=== PATIENT | female | born 1985 | race African-American/Black ===

== ENCOUNTER 2019-04-03 18:53 | Emergency (ER) | payer MEDICAID, OTHER ==
[~2019-04-03] VITALS: Ht 167.6 cm; Wt 75.0 kg
[2019-04-03] MEDS ORDERED: IPRATROPIUM BROMIDE (0.02%) 0.5MG/2.5ML NEB HHN STA (19:59)
[2019-04-03] MEDS ORDERED: PREDNISONE 20MG TABLET PO STA (19:59)
[2019-04-03] MEDS ORDERED: ALBUTEROL (0.083%) 2.5MG/3ML NEB HHN STA (19:59)
[2019-04-03 21:38] VITALS: BP 143/95
== END 2019-04-03 21:41 | disposition home or self-care (01) ==
LOC: ER 18:53
DX: J40 Bronchitis, not specified as acute or chronic (principal); M54.6 Pain in thoracic spine
CPT/HCPCS: 71045; 94640; 99283; J7512; J7611